=== PATIENT | female | born 1995 | race Two or more races ===

== ENCOUNTER 2022-07-23 09:08 | Emergency (ER) | payer OTHER ==
[~2022-07-23] VITALS: Ht 162.6 cm; Wt 86.2 kg
[2022-07-23] MEDS ORDERED: PROAIR RESPICL90 MCG IH (09:40)
[2022-07-23] MEDS ORDERED: SYNTHROID175 MCG PO (09:42)
[2022-07-23] MEDS ORDERED: SYNTHROID200 MCG PO (09:44)
== END 2022-07-23 13:12 | disposition home or self-care (01) ==
LOC: ER 09:08
DX: J45.909 Unspecified asthma, uncomplicated (principal); I10 Essential (primary) hypertension; Z88.0 Allergy status to penicillin; Z91.013 Allergy to seafood; Z91.010 Allergy to peanuts; Z20.822 Contact with and (suspected) exposure to COVID-19